=== PATIENT | female | born 1960 | race Caucasian/White ===

== ENCOUNTER 2017-12-10 12:55 | Emergency (ER) | payer MEDICAID ==
[2017-12-10 13:20] VITALS: RESP 18; TEMP 98.2
--- NOTE | 2017-12-10 13:33 | C.PDOC ---
History Of Present Illness 57-YEAR-OLD FEMALE, PRESENTS TO THE EMERGENCY DEPARTMENT WITH COMPLAINTS OF NEW ONSET R EAR PAIN, SWELL, RASH X 4 DAYS. UNK IF PRIOR [place]. NO FEVER, DM, HEARING CHANGE OR FACIAL WEAKNESS. EXAM MILD DIST HEENT R EAR +SWELLING NO EDEMA OUTER EAR. NO FACIAL DEFORM SKIN RASH R OUTER EAR C/W SHINGLES. NO DC REMAINDERNEG Time Seen by Provider: 12/10/17 13:29 Chief Complaint (Nursing): Abnormal Skin Integrity History Per: Patient History/Exam Limitations: no limitations Past Medical History Reviewed: Historical Data, Nursing Documentation, Vital Signs Vital Signs: Last Vital Signs Temp 98.2 F 12/10/17 13:17 Pulse 74 12/10/17 13:58 Resp 18 12/10/17 13:58 BP 122/74 12/10/17 13:58 Pulse Ox 97 12/10/17 17:42 - Medical History PMH: HTN Family History: States: No Known Family Hx - Social History Hx Alcohol Use: No Hx Substance Use: No - Immunization History Hx Tetanus Toxoid Vaccination: No Hx Influenza Vaccination: No Hx Pneumococcal Vaccination: No Review Of Systems Constitutional: Negative for: Fever, Chills Respiratory: Negative for: Cough, Shortness of Breath Gastrointestinal: Negative for: Vomiting Skin: Positive for: Rash Neurological: Negative for: Headache, Dizziness Physical Exam - Physical Exam Appears: Non-toxic, No Acute Distress Skin: Warm, Dry, Rash (RASH R OUTER EAR C/W SHINGLES. NO DC) Head: Normacephalic Eye(s): bilateral: PERRL Ear(s): Left: Normal, Right: Other (R EAR +SWELLING NO EDEMA OUTER EAR. NO FACIAL DEFORM) Nose: Normal, No Flaring, No Discharge Oral Mucosa: Moist Lips: Normal Appearing Throat: No Erythema, No Exudate Neck: Normal ROM, Trachea Midline, Supple Chest: Symmetrical Cardiovascular: Rhythm Regular, No Murmur Respiratory: Normal Breath Sounds, No Accessory Muscle Use Extremity: Normal ROM, No Deformity, No Swelling Neurological/Psych: Oriented x3, Normal Speech ED Course And Treatment O2 Sat by Pulse Oximetry: 97 (RA) Pulse Ox Interpretation: Normal Disposition Counseled Patient/Family Regarding: Diagnosis, Need For Followup, Rx Given - Disposition Referrals: YOUR,PMD [Other] Disposition: HOME/ ROUTINE Disposition Time: 13:33 Condition: IMPROVED Prescriptions: Ondansetron [Zofran Odt] 4 mg PO TID PRN #9 odt PRN Reason: Nausea/Vomiting oxyCODONE/Acetaminophen [Percocet 5/325 mg Tab] 1 ea PO Q6 PRN #10 tab PRN Reason: Pain, Moderate (4-7) predniSONE [Prednisone] 60 mg PO DAILY #12 tab Valacyclovir HCl [Valtrex] 1,000 mg PO TID #21 tablet Instructions: Shingles Forms: Ordr.in (Syriac) - Clinical Impression Clinical Impression: Herpes zoster - Scribe Statement The provider has reviewed the documentation as recorded by the Scribe (Bethanie John) All medical record entries made by the Scribe were at my direction and personally dictated by me. I have reviewed the chart and agree that the record accurately reflects my personal performance of the history, physical exam, medical decision making, and the department course for this patient. I have also personally directed, reviewed, and agree with the discharge instructions and disposition.
[2017-12-10] MEDS ORDERED: Oxycodone/Acetaminophen 5/325 mg Tab PO STA (13:37)
[2017-12-10] MEDS ORDERED: Oxycodone/Acetaminophen 5/325 mg Tab ONE (13:46)
[2017-12-10 13:59] VITALS: BP 122/74; PULSE 74
[2017-12-10 14:59] VITALS: O2SAT 97
== END 2017-12-10 13:59 | disposition home or self-care (01) ==
LOC: C.ER 12:55
DX: B02.9 Zoster without complications (principal); I10 Essential (primary) hypertension